=== PATIENT | female | born 1980 | race African-American/Black ===

== ENCOUNTER 2019-09-23 10:32 | Inpatient (IN) | payer OTHER ==
[2019-09-23 11:01] VITALS: BMI 20.5
--- NOTE | 2019-09-23 11:46 | HP ---
CIWA Score - Admission Criteria [facility]ASAS Guidelines: Admission for Medically Managed Detox: Requires at least one of the followin. CIWA greater than 12 2. Seizures within the past 24 hours 3. Delirium tremens within the past 24 hours 4. Hallucinations within the past 24 hours 5. Acute intervention needed for co occurring medical disorder 6. Acute intervention needed for co occurring psychiatric disorder 7. Severe withdrawal that cannot be handled at a lower level of care (continued vomiting, continued diarrhea, abnormal vital signs) requiring intravenous medication and/or fluids 8. Admission ROS S - HPI Allergies/Adverse Reactions: Allergies Allergy/AdvReac Type Severity Reaction Status Date / Time seafood Allergy Uncoded 09/23/19 10:53 History of Present Illness: pt here requesting assistance for cocaine use , states since age 31 , daily for the last 3 mo . cannabis : daily " all day every day " tobacco : daily 2-3 cigs/day denies other illicits etoh - denies use pmhx : bipolar d/o II , SAD , denies current SI / HI , ibs , left pneumothorax per pt 2003 dx @ [facility] hosp via CT scan , on Albuterol inhaler [facility] 09/14/19 Exam Limitations: No Limitations - Ebola screening Have you traveled outside of the country in the last 21 days: No Have you had contact with anyone from an Ebola affected area: No Do you have a fever: No - Review of Systems Constitutional: No Symptoms Reported EENT: reports: Other (contacts no teeth) Respiratory: reports: No Symptoms reported Cardiac: reports: No Symptoms Reported GI: reports: Constipated : reports: No Symptoms Reported Musculoskeletal: reports: No Symptoms Reported Integumentary: reports: No Symptoms Reported Neuro: reports: No Symptoms reported Endocrine: reports: No Symptoms Reported Psychiatric: reports: Orientated x3, Agitated, Anxious Patient History - Smoking Cessation Smoking history: Current some day smoker Have you smoked in the past 12 months: Yes Hx Chewing Tobacco Use: No Initiated information on smoking cessation: No - Substances abused Crack Substance route: Smoking Frequency: Daily Amount used: $40 Age of first use: 31 Date of last use: 09/22/19 Marijuana/Hashish Substance route: Oral Frequency: Daily Amount used: 3 BLUNTS Age of first use: 23 Date of last use: 09/22/19 Cocaine Substance route: Smoking Frequency: Daily Amount used: 3 rocks Age of first use: 31 Date of last use: 09/22/19 Admission Physical Exam BHS - Vital Signs Vital Signs: Vital Signs - 24 hr 09/23/19 10:51 Temperature 98.3 F Pulse Rate 96 H Respiratory 16 Rate Blood Pressure 114/73 - Physical General Appearance: Yes: Anxious HEENTM: Yes: EOMI, Hearing grossly Normal, Normocephalic, Normal Voice, Other ( edentulous) Respiratory: Yes: Decreased Breath Sounds, No Respiratory Distress, No Accessory Muscle Use Neck: Yes: No masses,lesions,Nodules, Trachea in good position Cardiology: Yes: Regular Rhythm, Regular Rate, S1, S2, Tachycardia Abdominal: Yes: Non Tender, Soft Musculoskeletal: Yes: Gait Steady Extremities: Yes: Normal Range of Motion, Non-Tender Neurological: Yes: Fully Oriented, Alert, Motor Strength 5/5 Integumentary: Yes: Warm, Other (scarring LEft forearm 2/2 prior self- inflicted injuries) - Diagnostic (1) Cocaine abuse Current Visit: Yes Status: Acute (2) Cannabis abuse Current Visit: Yes Status: Chronic (3) Nicotine use disorder Current Visit: Yes Status: Chronic Breathalyzer - Breathalyzer Breathalyzer: 0 Urine Drug Screen - Test Device Lot number: [id number] Expiration date: 06/01/21 - Control Is test valid?: Yes - Results Drug screen NEGATIVE: No Urine drug screen results: THC-Marijuana, MARIAMA-Cocaine, BZO-Benzodiazepines Inpatient Rehab Admission - Rehab Decision to Admit Inpatient rehab admission?: Yes - Initial Determination Are CD services needed?: Yes Free of communicable disease: Yes Not in need of hospitalization: Yes - Rehab Admission Criteria Previous failed treatment: No Poor recovery environment: No Comorbidities: No Lacks judgement: Yes Patient is meeting Inpatient Rehab admission criteria:: Yes
[2019-09-23] MEDS ORDERED: ACETAMINOPHEN 325 MG TABLET (FP) PO PRN (12:03)
[2019-09-23] MEDS ORDERED: MAGNESIUM HYDROX 2400MG/30ML ORAL SUSPENSION 30 ML CUP PO PRN (12:03)
[2019-09-23] MEDS ORDERED: IBUPROFEN 400 MG TABLET (FP) PO PRN (12:03)
[2019-09-23] MEDS ORDERED: MENTHOL/PHENOL 1 EACH UD MM PRN (12:03)
[2019-09-23] MEDS ORDERED: P-EPHED 60MG/TRIPROLIDI 2.5MG TABLET PO PRN (12:03)
[2019-09-23] MEDS ORDERED: MAG HYDROX/AL HYDROX/SIMETH 30 ML UNIT-DOSE CUP PO PRN (12:03)
[2019-09-23] MEDS ORDERED: guaiFENesin 200 MG/10 ML 10 ML UNIT-DOSE CUPS PO PRN (12:03)
[2019-09-23] MEDS ORDERED: MAGNESIUM CITRATE 300 ML BOTTLE PO PRN (12:03)
[2019-09-23 18:39] LABS: HEMATOCRIT 31.7 % (32.4-45.2); HEMOGLOBIN 10.4 GM/dL (10.7-15.3); MCH 29.9 pg (25.7-33.7); MCHC 32.9 g/dl (32.0-36.0); MEAN CELL VOLUME 90.9 fl (80-96); MEAN PLT VOLUME 9.9 fl (7.5-11.1); PLATELET COUNT 285 K/MM3 (134-434); RBC 3.49 M/mm3 (3.60-5.2); WHITE BLOOD COUNT 8.2 K/mm3 (4.0-10.0)
[2019-09-23 18:51] LABS: ALBUMIN 3.7 g/dl (3.4-5.0); BILIRUBIN,TOTAL 0.9 mg/dL (0.2-1); BLOOD UREA NITROGEN 21.8 mg/dL (7-18); CALCIUM 8.5 mg/dL (8.5-10.1); CREATININE 0.9 mg/dL (0.55-1.3); TOT PROT 6.6 g/dl (6.4-8.2)
[2019-09-23] MEDS ORDERED: THIAMINE HCL 100 MG TABLET (FP) PO SCH (22:00)
[2019-09-23] MEDS ORDERED: MELATONIN 5 MG TABLETS PO PRN (22:00)
[2019-09-24 07:23] VITALS: BP 114/76; PULSE 73; TEMP 98.1
--- NOTE | 2019-09-24 09:35 | PN ---
[facility] Progress Note Note: called by nurse Joselyn Osborn for verbal altercation in the room there is verbal altercation of this client with other client G.E in the same room both denied injury miss Mendez stated that she would like to leave to go back to her boyfriend and the usp,mentioned she is not ready to come in to rehab and continue treatment and would like to leave , Briefing with Johana Mcgarry nursing supervisor [employer],Camryn Rosas counselor,Joselyn Osborn RN,all agreeed that Miss Andrea Beníteze leave ama,she escorted off the unit by security,left the unit in stable condition
[2019-09-24] MEDS ORDERED: PRENATAL VITAMINS W/ FOLIC ACID TABLET (FP) PO SCH (10:00)
--- NOTE | 2019-09-24 10:05 | DS ---
[facility] Rehab Discharge Summary - [facility] Rehab Discharge Summary Admission Date: 09/23/19 Discharge Date: 09/24/19 - History Present History: Cannabis dependence, Cocaine dependence Pertinent Past History: bipolar 2 disorder - Discharge Physical Exam Vital Signs: Vital Signs Temperature 98.1 F 09/24/19 07:23 Pulse Rate 73 09/24/19 07:23 Respiratory Rate 18 09/24/19 07:23 Blood Pressure 114/76 09/24/19 07:23 O2 Sat by Pulse Oximetry (%) Pertinent Admission Physical Exam Findings: Vital Signs Temperature 98.1 F 09/24/19 07:23 Pulse Rate 73 09/24/19 07:23 Respiratory Rate 18 09/24/19 07:23 Blood Pressure 114/76 09/24/19 07:23 O2 Sat by Pulse Oximetry (%) Laboratory Last Values WBC 8.2 K/mm3 (4.0-10.0) 09/23/19 13:05 RBC 3.49 M/mm3 (3.60-5.2) L 09/23/19 13:05 Hgb 10.4 GM/dL (10.7-15.3) L 09/23/19 13:05 Hct 31.7 % (32.4-45.2) L 09/23/19 13:05 MCV 90.9 fl (80-96) 09/23/19 13:05 MCH 29.9 pg (25.7-33.7) 09/23/19 13:05 MCHC 32.9 g/dl (32.0-36.0) 09/23/19 13:05 RDW 14.0 % (11.6-15.6) 09/23/19 13:05 Plt Count 285 K/MM3 (134-434) 09/23/19 13:05 MPV 9.9 fl (7.5-11.1) 09/23/19 13:05 Sodium 139 mmol/L (136-145) 09/23/19 13:05 Potassium 4.0 mmol/L (3.5-5.1) 09/23/19 13:05 Chloride 104 mmol/L (98-107) 09/23/19 13:05 Carbon Dioxide 28 mmol/L (21-32) 09/23/19 13:05 Anion Gap 6 MMOL/L (8-16) L 09/23/19 13:05 BUN 21.8 mg/dL (7-18) H 09/23/19 13:05 Creatinine 0.9 mg/dL (0.55-1.3) 09/23/19 13:05 Est GFR (CKD-EPI)AfAm 94.67 09/23/19 13:05 Est GFR (CKD-EPI)NonAf 81.68 09/23/19 13:05 Random Glucose 85 mg/dL (74-106) 09/23/19 13:05 Calcium 8.5 mg/dL (8.5-10.1) 09/23/19 13:05 Total Bilirubin 0.9 mg/dL (0.2-1) 09/23/19 13:05 AST 27 U/L (15-37) 09/23/19 13:05 ALT 17 U/L (13-61) 09/23/19 13:05 Alkaline Phosphatase 89 U/L (45-117) 09/23/19 13:05 Total Protein 6.6 g/dl (6.4-8.2) 09/23/19 13:05 Albumin 3.7 g/dl (3.4-5.0) 09/23/19 13:05 RPR Titer Nonreactive (NONREACTIVE) 09/23/19 13:05 HIV 1&2 Antibody Screen Negative 09/23/19 13:05 HIV P24 Antigen Negative 09/23/19 13:05 - Treatment Discharge Condition: Discharge condition good Hospital Course: involved in verbal altercation with room mated,both denied injury,stated that she is not ready to come in for rehab and would like to go back to intermediate and her boyfriend,left ama,no suicidal,no homicidal ideation,has her medication and has been taking zoloft 50 mgs daily and depakote 500 mgs bid,and has all medication with her laft the unit in stable condition - Medication Discharge Medications: Ambulatory Orders Divalproex Sodium [Depakote ER] 500 mg PO BID 09/23/19 Sertraline HCl [Zoloft -] 50 mg PO DAILY 09/23/19 - Medication-Assisted Treatment (MAT) Medication-Assisted Treatment (MAT): No - Discharge Instructions Diet, activity, other medical instructions: Diet: Activity: Other medical instructions: - Diagnosis (1) Cocaine abuse Current Visit: Yes Status: Acute (2) Cannabis abuse Current Visit: Yes Status: Chronic (3) Nicotine use disorder Current Visit: Yes Status: Chronic (4) Bipolar 2 disorder Current Visit: Yes Status: Acute - AMA Did Patient Leave Against Medical Advice: Yes
[2019-09-24 11:02] LABS: PH,URINE 6.5 (5.0-8.0); URINE APPEARANCE CLEAR; URINE BILIRUBIN NEGATIVE (NEGATIVE); URINE COLOR YELLOW; URINE GLUCOSE (UA) NEGATIVE (NEGATIVE); URINE KETONE NEGATIVE (NEGATIVE); URINE LEUK ESTERASE NEGATIVE (NEGATIVE); URINE NITRITE NEGATIVE (NEGATIVE); URINE PROTEIN NEGATIVE (NEGATIVE); URINE UROBILINOGEN 0.2 mg/dL (0.2-1.0)
== END 2019-09-24 09:05 | disposition left against medical advice (07) | DRG 770 ==
LOC: YASAS 10:32 → Y6N 12:00 → Y3E 12:22
PROVIDERS: ADMIT Neuromusculoskeletal Medicine & OMM; ATTEND Neuromusculoskeletal Medicine & OMM
PROC: HZ42ZZZ Group Counseling for Substance Abuse Treatment, Cognitive-Behavioral (ICD-10-PCS; principal; 2019-09-23)
DX: F14.20 Cocaine dependence, uncomplicated (principal); F12.20 Cannabis dependence, uncomplicated; F17.210 Nicotine dependence, cigarettes, uncomplicated; F31.81 Bipolar II disorder; Z59.0 Homelessness
CPT/HCPCS: 36415; 80053; 81003; 85027; 86593; 87389

== ENCOUNTER 2023-03-10 15:09 | Inpatient (IN) | payer OTHER ==
[2023-03-10 16:01] VITALS: BMI 18.0
[2023-03-10] MEDS ORDERED: BENZONATATE 200 MG CAPSULE PO PRN (20:42)
[2023-03-10] MEDS ORDERED: guaiFENesin 600 MG TABLET.ER (FP) PO PRN (20:42)
[2023-03-10] MEDS ORDERED: TUBERCULIN PPD 5 TU/0.1ML SYRINGE (IN PATIENT USE ONLY) ID ONE (20:42)
[2023-03-10] MEDS ORDERED: ACETAMINOPHEN 325 MG TABLET (FP) PO PRN (20:42)
[2023-03-10] MEDS ORDERED: LOPERAMIDE HCL 2 MG CAPSULE PO PRN (20:42)
[2023-03-10] MEDS ORDERED: BENZOCAINE/MENTHOL (CHLORASEPTIC ) LOZENGE MM PRN (20:42)
[2023-03-10] MEDS ORDERED: NALOXONE HCL (KLOXXADO) 8 MG SPRAY NS PRN (20:42)
[2023-03-10] MEDS ORDERED: IBUPROFEN 600 MG TABLET (FP) PO PRN (20:42)
[2023-03-10] MEDS ORDERED: IBUPROFEN 400 MG TABLET (FP) PO PRN (20:42)
[2023-03-10] MEDS ORDERED: POLYETHYLENE GLYCOL (HEALTHYLAX) 3350 17 GM PACKET PO PRN (20:42)
[2023-03-10] MEDS ORDERED: COLLOIDAL OATMEAL 1 BAR EACH TP PRN (20:42)
[2023-03-10] MEDS ORDERED: NICOTINE 10 MG CARTRIDGE (INHALER) IH PRN (20:42)
[2023-03-10] MEDS ORDERED: MAGNESIUM HYDROX 2400MG/30ML ORAL SUSPENSION 30 ML CUP PO PRN (20:42)
[2023-03-10] MEDS ORDERED: NALOXONE HCL 0.4 MG/ML VIAL IM PRN (20:42)
[2023-03-10] MEDS ORDERED: MAG HYDROX/AL HYDROX/SIMETH 30 ML UNIT-DOSE CUP PO PRN (20:42)
[2023-03-10] MEDS ORDERED: AMMONIUM LACTATE 12% LOTION 225 GM BOTTLE TP PRN (20:42)
[2023-03-10] MEDS ORDERED: MELATONIN 5 MG TABLETS PO SCH (22:00)
[2023-03-10] MEDS: THIAMINE HCL 100 MG TABLET (FP) PO SCH (22:30)
[2023-03-11] MEDS ORDERED: ALBUTEROL SO4 HFA INHALER IH PRN (03:30)
[2023-03-11] MEDS ORDERED: DIVALPROEX SODIUM 500 MG TABLET E.C. PO ONE (09:45)
[2023-03-11] MEDS: PRENATAL VITAMINS W/ FOLIC ACID TABLET (FP) PO SCH (10:27)
[2023-03-11] MEDS: QUEtiapine FUMARATE 50 MG TABLET PO SCH (10:27)
[2023-03-11 12:55] LABS: POTASSIUM 3.3 mmol/L (3.5-5.1)
[2023-03-11 13:03] LABS: ALBUMIN 3.5 g/dl (3.4-5.0); BLOOD UREA NITROGEN 8.9 mg/dL (7-18); CALCIUM 8.5 mg/dL (8.5-10.1); CREATININE 0.9 mg/dL (0.55-1.3)
[2023-03-11 13:05] LABS: BILIRUBIN,TOTAL 0.5 mg/dL (0.2-1); TOT PROT 6.5 g/dl (6.4-8.2)
[2023-03-11 13:14] LABS: HEMATOCRIT 35.8 % (32.4-45.2); MCH 29.9 pg (25.7-33.7); MCHC 33.5 g/dl (32.0-36.0); MEAN CELL VOLUME 89.2 fl (80-96); PLATELET COUNT 249 10^3/uL (134-434); RBC 4.01 M/mm3 (3.60-5.2); RDW 14.1 % (11.6-15.6); WHITE BLOOD COUNT 4.3 K/mm3 (4.0-10.0)
[2023-03-11 13:47] LABS: SYPHILIS W/ RPR CONF NON-REACTIVE (NONREACTIVE)
[2023-03-11] MEDS: THIAMINE HCL 100 MG TABLET (FP) PO SCH (21:15)
[2023-03-11] MEDS: DIVALPROEX SODIUM 500 MG TABLET E.C. PO SCH (21:15)
[2023-03-11] MEDS: QUEtiapine FUMARATE 100 MG TABLET (FP) PO SCH (21:15)
[2023-03-12] MEDS: QUEtiapine FUMARATE 50 MG TABLET PO SCH (07:04)
[2023-03-12] MEDS: DIVALPROEX SODIUM 500 MG TABLET E.C. PO SCH (07:04)
[2023-03-12] MEDS: PRENATAL VITAMINS W/ FOLIC ACID TABLET (FP) PO SCH (11:05)
[2023-03-12] MEDS: QUEtiapine FUMARATE 100 MG TABLET (FP) PO SCH (21:38)
[2023-03-12] MEDS: THIAMINE HCL 100 MG TABLET (FP) PO SCH (21:38)
[2023-03-12] MEDS ORDERED: DIVALPROEX SODIUM 500 MG TABLET E.C. PO SCH (22:00)
[2023-03-13] MEDS: QUEtiapine FUMARATE 50 MG TABLET PO SCH (07:09)
[2023-03-13] MEDS: DIVALPROEX SODIUM 500 MG TABLET E.C. PO SCH ×2 (10:36→21:28)
[2023-03-13] MEDS: PRENATAL VITAMINS W/ FOLIC ACID TABLET (FP) PO SCH (10:36)
[2023-03-13] MEDS: THIAMINE HCL 100 MG TABLET (FP) PO SCH (21:27)
[2023-03-13] MEDS: QUEtiapine FUMARATE 100 MG TABLET (FP) PO SCH (21:27)
[2023-03-14] MEDS: DIVALPROEX SODIUM 500 MG TABLET E.C. PO SCH (07:04)
[2023-03-14] MEDS: QUEtiapine FUMARATE 50 MG TABLET PO SCH (07:04)
[2023-03-14 07:48] VITALS: BP 106/67; PULSE 94; RESP 16; TEMP 97.8
[2023-03-14] MEDS: PRENATAL VITAMINS W/ FOLIC ACID TABLET (FP) PO SCH (10:54)
== END 2023-03-14 12:15 | disposition home or self-care (01) | DRG 772 ==
LOC: YASAS 15:09 → Y5N 21:06
PROVIDERS: ADMIT Allergy & Immunology; ATTEND Psychiatry & Neurology Pain Medicine
PROC: HZ42ZZZ Group Counseling for Substance Abuse Treatment, Cognitive-Behavioral (ICD-10-PCS; principal; 2023-03-10)
DX: F14.20 Cocaine dependence, uncomplicated (principal); F12.20 Cannabis dependence, uncomplicated; F17.210 Nicotine dependence, cigarettes, uncomplicated; F31.81 Bipolar II disorder; F19.282 Other psychoactive substance dependence with psychoactive substance-induced sleep disorder; F41.9 Anxiety disorder, unspecified; J45.909 Unspecified asthma, uncomplicated; M25.561 Pain in right knee; Z28.310 Unvaccinated for COVID-19; Z28.9 Immunization not carried out for unspecified reason
CPT/HCPCS: 36415; 80053; 80164; 81025; 82962; 85027; 86780; 86803; 93005; 93010; C9803-CS; U0003; U0005